=== PATIENT | male | born 1975 | race Hispanic/Latino ===

== ENCOUNTER → 2020-10-01 12:04 | Outpatient (CLI) | payer OTHER, SELFPAY ==
[2020-10-01 11:45] VITALS: BMI 25.4
--- NOTE | 2020-10-01 12:18 | RAD_ITS ---
STUDY: X-RAY - LEFT TIBIA AND FIBULA REASON FOR EXAM: Male, 45 years old. LEFT MEDIAL GASTROCNEMIUS SWELLING AFTER INJURY TECHNIQUE: 2 view(s) of the tibia and fibula were obtained. COMPARISON: None. FINDINGS: Normal visualized tibia. Normal visualized fibula. Posterior soft tissue swelling. RAD/Tibia & Fibula 2 Views IMPRESSION: Posterior soft tissue swelling. Electronically Signed: Kailash Larkin MD at 13:13 EDT , Service support ,
== END ==
PROVIDERS: Referring Provider Physician Assistant; Visit Provider Physician Assistant
DX: S86.812A Strain of other muscle(s) and tendon(s) at lower leg level, left leg, initial encounter (principal)
CPT/HCPCS: 73590